=== PATIENT | male | born 1980 | race Caucasian/White ===

== ENCOUNTER 2024-10-13 23:14 | Emergency (ER) | payer MEDICARE, OTHER ==
[~2024-10-13] VITALS: Ht 170.2 cm; Wt 108.9 kg
[2024-10-13 23:44] LABS: BASOPHILS 1.5 % (0-2); EOSINOPHILS 1.7 % (0-6); HEMATOCRIT 46.4 % (35.0-50.0); HEMOGLOBIN 15.6 g/dL (12.0-18.0); LYMPHOCYTES 35.4 % (24-44); MCH 30.6 (27-36); MCHC 33.7 g/dl (30-36); MCV 90.8 fl (81-99); MONOCYTES 8.2 % (0-12); NEUTROPHILS 53.2 % (39-80); PLATELET COUNT 305 K/uL (140-440); RBC 5.11 M/ul (4.3-5.7); RDW 13.8 (10.5-15.0)
[2024-10-13] MEDS ORDERED: MORPHINE SULFATE 4 MG/ML VIAL IV ONE (23:45)
[2024-10-13] MEDS ORDERED: ondansetron HCL 4 MG/2 ML VIAL IV ONE (23:45)
[2024-10-13] MEDS ORDERED: SODIUM CHLORIDE 0.9% 1,000 ML IV ONE (23:45)
[2024-10-13 23:53] LABS: ALBUMIN 3.8 g/dL (3.4-5.0); ALBUMIN/GLOBULIN RATIO 1.23 (1.1-2.4); ANION GAP 11.9 (7-21); BILIRUBIN, TOTAL 0.2 ng/dL (0.2-1.0); BUN/CREATININE RATIO 14.77 (6.0-28.6); CALCIUM 8.8 mg/dL (8.5-10.1); CREATININE, SERUM 0.88 mg/dL (0.70-1.30); POTASSIUM 3.9 mmol/L (3.5-5.1); PROTEIN, TOTAL 6.9 g/dL (6.4-8.2)
[2024-10-13 23:59] LABS: BILIRUBIN, URINE NEGATIVE (negative); BLOOD/HGB, URINE NEGATIVE (Negative); KETONE, URINE NEGATIVE (Negative); LEUK ESTERASE, URINE NEGATIVE (negative); NITRITE, URINE NEGATIVE (negative)
[2024-10-14] MEDS ORDERED: AZMIRO200 MG/1 M (02:00)
[2024-10-14] MEDS ORDERED: OXYCODONE/APAP 5/325 TAB PO ONE (02:00)
[2024-10-14] MEDS ORDERED: OMEPRAZOLE20 MG (02:01)
[2024-10-14] MEDS ORDERED: GABAPENTIN300 MG (02:01)
[2024-10-14] MEDS ORDERED: DIOVAN40 MG (02:01)
[2024-10-14] MEDS ORDERED: TRAMADOL HCL25 MG (02:01)
[2024-10-14] MEDS ORDERED: VENTOLIN HFA18 GM (02:02)
[2024-10-14] MEDS ORDERED: FLOMAX0.4 MG (02:02)
[2024-10-14] MEDS ORDERED: ONDANSETRON ODT8 MG PO (02:14)
[2024-10-14] MEDS ORDERED: HYDROCODON-ACE1 EA10 PO (02:14)
[2024-10-14] MEDS ORDERED: ONDANSETRON 4 MG HOME.PACK SL ONE (03:15)
[2024-10-14] MEDS ORDERED: OXYCODONE/ACETAMINOPHEN 1 TAB HOME.PACK PO ONE (03:15)
[2024-10-14 03:32] VITALS: BP 108/69
== END 2024-10-14 03:34 | disposition home or self-care (01) ==
LOC: ED 23:14
PROVIDERS: Family Medicine
DX: K85.90 Acute pancreatitis without necrosis or infection, unspecified (principal); Z88.6 Allergy status to analgesic agent; Z88.2 Allergy status to sulfonamides; Z88.1 Allergy status to other antibiotic agents; Z88.8 Allergy status to other drugs, medicaments and biological substances; Z79.890 Hormone replacement therapy; Z79.899 Other long term (current) drug therapy
CPT/HCPCS: 36415; 74177; 80053; 81003; 83690; 84478; 85025; 96375; 99284-25; A9270; J2270; J2405; J7030; Q9967

== ENCOUNTER 2024-11-04 20:24 | Emergency (ER) | payer MEDICARE, OTHER ==
[~2024-11-04] VITALS: Ht 170.2 cm; Wt 108.0 kg
[~2024-11-04 20:24] MED LIST: AZMIRO200 MG/1 M; DIOVAN40 MG; FLOMAX0.4 MG; GABAPENTIN300 MG; HYDROCODON-ACE1 EA10 PO; OMEPRAZOLE20 MG; ONDANSETRON ODT8 MG PO; TRAMADOL HCL25 MG; VENTOLIN HFA18 GM
--- OUTSIDE RECORDS SUMMARY | 2024-11-04 20:31 | XMS ---
PreManage Notification: SHAYLA LOMELI Security Copy Manager Events No recent Security Events currently on file CRITERIA MET - [facility] - 2 Visits in 30 Days CARE PROVIDERS -, [facility] Dentist: Jack Spinner Max Ventura PHONE: [phone] CARMEN MURRAY Physician Tank Hoop Bender Current PHONE: [phone] Bria Altamirano Physician Tank Hoop Bender Max HUMPHREYS PHONE: [phone] Care Guidelines exist for the following facilities: [facility] ( 07/19/2020 ) [facility] ( 08/13/2019 ) [facility] ( 08/03/2014 ) [place] VISIT COUNT (12 MO.) [address] [place], [place] [address]Yoselin 2 MICHELLE [place] TOTAL 9 NOTE: Visits indicate total known visits. ED/UCC VISIT TRACKING (12 MO.) 11/04/2024 20:25 MICHELLE Trotter [place] TYPE: Emergency COMPLAINT: - LEFT LEG PAIN 10/13/2024 23:15 MICHELLE [place] TYPE: Emergency COMPLAINT: - ABD PAIN DIAGNOSES: - Acute pancreatitis without necrosis or infection, unspecified - Allergy status to analgesic agent - Allergy status to other antibiotic agents - Allergy status to other drugs, medicaments and biological substances - Allergy status to sulfonamides - Generalized abdominal pain - Hormone replacement therapy - [place] [facility] [place] drug therapy 07/28/2024 09:[facility] [place] [facility] COMPLAINT: - SOB, COUGH 07/08/2024 14:28 [facility] Tonia Richardson [place] TYPE: Emergency COMPLAINT: - BACK PAIN 05/11/2024 18:22 [facility] Tonia Richardson [place] TYPE: Emergency COMPLAINT: - R SIDE FACE PAIN 01/30/2024 11:14 [facility] [place] [facility] COMPLAINT: - NECK PAIN 01/17/2024 10:27 [facility] [place] [facility] COMPLAINT: - BACK PAIN 12/08/2023 12:13 [facility] [place] [facility] COMPLAINT: - LWR BACK, TESTICULAR PAIN 11/11/2023 17:06 [facility] [place] [facility] COMPLAINT: - ABD PAIN INPATIENT VISIT TRACKING (12 MO.) No inpatient visits to display in this time frame [id number]
[2024-11-04] MEDS ORDERED: PRIMIDONE50 MG PO (22:12)
[2024-11-04] MEDS ORDERED: HYDROmorphone HCL 1 MG/ML SYR IV PRN (22:45)
[2024-11-04] MEDS ORDERED: SODIUM CHLORIDE 0.9% 1,000 ML IV SCH (22:45)
[2024-11-04 22:56] LABS: BASOPHILS 1.5 % (0-2); HEMATOCRIT 46.2 % (35.0-50.0); HEMOGLOBIN 15.6 g/dL (12.0-18.0); LYMPHOCYTES 40.7 % (24-44); MCH 30.7 (27-36); MCHC 33.9 g/dl (30-36); MCV 90.7 fl (81-99); MONOCYTES 6.7 % (0-12); NEUTROPHILS 50.1 % (39-80); PLATELET COUNT 288 K/uL (140-440); RBC 5.09 M/ul (4.3-5.7); RDW 13.8 (10.5-15.0)
[2024-11-04 23:12] LABS: ALBUMIN 4.1 g/dL (3.4-5.0); ALBUMIN/GLOBULIN RATIO 1.32 (1.1-2.4); ANION GAP 15.7 (7-21); BILIRUBIN, TOTAL 0.5 mg/dL (0.2-1.0); BUN/CREATININE RATIO 16.86 (6.0-28.6); CALCIUM 9.4 mg/dL (8.5-10.1); CREATININE, SERUM 0.83 mg/dL (0.70-1.30); POTASSIUM 3.7 mmol/L (3.5-5.1); PROTEIN, TOTAL 7.2 g/dL (6.4-8.2)
[2024-11-04 23:16] LABS: AMPHETAMINES, URINE NEGATIVE (NEGATIVE); BARBITURATES, URINE NEGATIVE (NEGATIVE); BENZODIAZEPINE, URINE NEGATIVE (NEGATIVE); BUPRENORPHINE, URINE NEGATIVE (NEGATIVE); CANNABINOID, URINE POSITIVE (NEGATIVE); COCAINE, URINE NEGATIVE (NEGATIVE); ECSTASY, URINE NEGATIVE (NEGATIVE); FENTANYL, URINE NEGATIVE (NEGATIVE); METHADONE, URINE NEGATIVE (NEGATIVE); OPIATES, URINE NEGATIVE (NEGATIVE); OXYCODONE, URINE NEGATIVE (NEGATIVE); PHENCYCLIDINE, URINE NEGATIVE (NEGATIVE)
[2024-11-04] MEDS ORDERED: ondansetron HCL 4 MG/2 ML VIAL IV ONE (23:45)
[2024-11-05 05:27] LABS: BASOPHILS 0.6 % (0-2); EOSINOPHILS 2.2 % (0-6); HEMATOCRIT 43.6 % (35.0-50.0); LYMPHOCYTES 38.6 % (24-44); MCH 31.2 (27-36); MCHC 34.3 g/dl (30-36); MCV 90.9 fl (81-99); NEUTROPHILS 51.6 % (39-80); PLATELET COUNT 283 K/uL (140-440); RBC 4.79 M/ul (4.3-5.7); RDW 13.3 (10.5-15.0)
[2024-11-05] MEDS ORDERED: HYDROCODONE BIT/ACETAMINOPHEN 5/325 MG 1 TAB HOME.PACK PO PRN (05:45)
[2024-11-05 05:50] VITALS: BP 111/63
== END 2024-11-05 05:50 | disposition home or self-care (01) ==
LOC: ED 20:24
PROVIDERS: Emergency Medicine
DX: S76.912A Strain of unspecified muscles, fascia and tendons at thigh level, left thigh, initial encounter (principal); X50.0XXA Overexertion from strenuous movement or load, initial encounter; Z88.6 Allergy status to analgesic agent; Z88.2 Allergy status to sulfonamides; Z88.1 Allergy status to other antibiotic agents; Z88.8 Allergy status to other drugs, medicaments and biological substances; Z79.899 Other long term (current) drug therapy
CPT/HCPCS: 36415; 80053; 80307; 82550; 85025; 93926; 96374; 96375; 96376; 99284-25; A9270; J1171; J2405; J7030

== ENCOUNTER 2024-12-03 13:14 | Emergency (ER) | payer MEDICARE, OTHER ==
[~2024-12-03] VITALS: Ht 170.2 cm; Wt 105.7 kg
[~2024-12-03 13:14] MED LIST changes: +PRIMIDONE50 MG PO
--- OUTSIDE RECORDS SUMMARY | 2024-12-03 13:20 | XMS ---
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 Events No recent Security Events currently on file CRITERIA MET - 6 ED Visits in 6 Months - Group Notification - [facility] - 2 Visits in 30 Days CARE PROVIDERS -, [facility] Dentist: Bull Bucker Max Ventura PHONE: [phone] MANDY CEVALLOS Physician Advertising Editor Current PHONE: [phone] CARMEN MURRAY Physician Advertising Editor Current PHONE: Unknown Bria Altamirano Physician Advertising Editor Max HUMPHREYS PHONE: [phone] Care Guidelines exist for the following facilities: [facility] ( 07/19/2020 ) [facility] ( 08/13/2019 ) [facility] ( 08/03/2014 ) [place] VISIT COUNT (12 MO.) 6 [facility]. 4 MICHELLE [place] . TOTAL 10 NOTE: Visits indicate total known visits. ED/UCC VISIT TRACKING (12 MO.) 12/03/2024 13:14 MICHELLE Trotter [place] TYPE: Emergency COMPLAINT: - CHEST PAIN 11/16/2024 10:16 MICHELLE Trotter [place] TYPE: Emergency COMPLAINT: - LT ARM PAIN 11/04/2024 20:25 MICHELLE Trotter [place] TYPE: Emergency COMPLAINT: - LEFT LEG PAIN DIAGNOSES: - Allergy status to analgesic agent - Allergy status to other antibiotic agents - Allergy status to other drugs, medicaments and biological substances - Allergy status to sulfonamides - Other [place] [facility] [place] drug therapy - Overexertion from strenuous movement or load, initial encounter - Pain in left thigh - Strain of unspecified muscles, fascia and tendons at thigh level, left thigh, initial encounter 10/13/2024 23:15 [facility] [place] TYPE: Emergency COMPLAINT: - ABD PAIN DIAGNOSES: - Acute pancreatitis without necrosis or infection, unspecified - Allergy status to analgesic agent - Allergy status to other antibiotic agents - Allergy status to other drugs, medicaments and biological substances - Allergy status to sulfonamides - Generalized abdominal pain - Hormone replacement therapy - Other [place] [facility] drug therapy 07/28/2024 09[facility] COMPLAINT: - SOB, COUGH 07/08/2024 14:28 [facility] COMPLAINT: - BACK PAIN 05/11/2024 18:22 [facility] COMPLAINT: - R SIDE FACE PAIN 01/30/2024 11:14 [facility] COMPLAINT: - NECK PAIN 01/17/2024 10:27 [facility] Tonia Richardson [place] TYPE: Emergency COMPLAINT: - BACK PAIN 12/08/2023 12:13 [facility] Tonia Richardson [place] TYPE: Emergency COMPLAINT: - LWR BACK, TESTICULAR PAIN INPATIENT VISIT TRACKING (12 MO.) No inpatient visits to display in this time frame [id number]
[2024-12-03] MEDS ORDERED: ASPIRIN 81 MG CHEW PO ONE (13:30)
[2024-12-03] MEDS ORDERED: NITROGLYCERIN 0.4 MG SUBL SL PRN (13:30)
[2024-12-03 13:32] LABS: BASOPHILS 0.7 % (0-2); EOSINOPHILS 1.5 % (0-6); HEMATOCRIT 46.6 % (35.0-50.0); HEMOGLOBIN 16.2 g/dL (12.0-18.0); LYMPHOCYTES 30.8 % (24-44); MCH 31.3 (27-36); MCHC 34.7 g/dl (30-36); MCV 90.1 fl (81-99); MONOCYTES 8.6 % (0-12); NEUTROPHILS 58.4 % (39-80); PLATELET COUNT 328 K/uL (140-440); RBC 5.17 M/ul (4.3-5.7); RDW 13.3 (10.5-15.0)
[2024-12-03 13:49] LABS: ALBUMIN 4.5 g/dL (3.4-5.0); ALBUMIN/GLOBULIN RATIO 1.41 (1.1-2.4); ANION GAP 15.2 (7-21); BILIRUBIN, TOTAL 0.4 mg/dL (0.2-1.0); BUN/CREATININE RATIO 17.94 (6.0-28.6); CALCIUM 9.3 mg/dL (8.5-10.1); CREATININE, SERUM 0.78 mg/dL (0.70-1.30); MAGNESIUM 1.7 mg/dL (1.8-2.4); POTASSIUM 4.2 mmol/L (3.5-5.1); PROTEIN, TOTAL 7.7 g/dL (6.4-8.2)
[2024-12-03 15:35] VITALS: BP 132/74
--- NOTE | 2024-12-04 22:32 | EKG ---
[facility] [address] [place] [address] Signed Sinus bradycardia Early repolarization Otherwise normal ECG No previous ECGs available Confirmed by Emery Powell MD () on 12/04/2024 10:31:58 PM Electronically Signed By: EMERY POWELL MD 12/04/242231 PATIENT NAME: SHAYLA LOMELI Electrocardiogram DATE OF : 84 PHYSICIAN: EMERY POWELL MD REPORT #: [id number] REPORT IS CONFIDENTIAL AND NOT TO BE RELEASED WITHOUT AUTHORIZATION
== END 2024-12-03 15:35 | disposition home or self-care (01) ==
LOC: ED 13:14
PROVIDERS: Emergency Medicine
DX: R07.9 Chest pain, unspecified (principal); F43.10 Post-traumatic stress disorder, unspecified; Z79.899 Other long term (current) drug therapy; Z88.2 Allergy status to sulfonamides; Z88.1 Allergy status to other antibiotic agents; Z88.6 Allergy status to analgesic agent
CPT/HCPCS: 36415; 71045; 80053; 83735; 84484; 85025; 85379; 93005; 93010; 99285-25; A9270

== ENCOUNTER 2024-12-03 21:31 | Emergency (ER) | payer MEDICARE, OTHER ==
[~2024-12-03] VITALS: Ht 170.2 cm; Wt 105.7 kg
--- OUTSIDE RECORDS SUMMARY | 2024-12-03 21:38 | XMS ---
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 Events No recent Security Events currently on file CRITERIA MET - 6 ED Visits in 6 Months - Group Notification - [facility] - 2 Visits in 30 Days CARE PROVIDERS -, [facility] Dentist: Patient Care Nursing Assistant Max Ventura PHONE: [phone] MANDY CEVALLOS Physician Clinical Rehabilitation Specialist Current PHONE: [phone] CARMEN MURRAY Physician Clinical Rehabilitation Specialist Current PHONE: Unknown Bria Altamirano Physician Clinical Rehabilitation Specialist Max HUMPHREYS PHONE: [phone] Care Guidelines exist for the following facilities: [facility] ( 07/19/2020 ) [facility] ( 08/13/2019 ) [facility] ( 08/03/2014 ) [place] VISIT COUNT (12 MO.) 6 [facility] TOTAL 11 NOTE: Visits indicate total known visits. ED/UCC VISIT TRACKING (12 MO.) 12/03/2024 21:32 MICHELLE [place]rotter [place] TYPE: Emergency COMPLAINT: - SWOLLEN NECK 12/03/2024 13:14 MICHELLE Trotter [place] TYPE: Emergency [...] - Allergy status to sulfonamides - Other [facility] (current) drug therapy - Overexertion from strenuous movement or load, initial encounter - Pain in left thigh - Strain of unspecified muscles, fascia and tendons at thigh level, left thigh, initial encounter 10/13/2024 23:15 MICHELLE [place] TYPE: Emergency COMPLAINT: - ABD PAIN DIAGNOSES: - Acute pancreatitis without necrosis or infection, unspecified - Allergy status to analgesic agent - Allergy status to other antibiotic agents - Allergy status to other drugs, medicaments and biological substances - Allergy status to sulfonamides - Generalized abdominal pain - Hormone replacement therapy - Other [facility] (current) drug therapy 07/28/2024 09:29 [facility] Tonia Richardson [place] TYPE: Emergency COMPLAINT: - SOB, COUGH 07/08/2024 14:28 [facility] Tonia Richardson [place] TYPE: Emergency COMPLAINT: - BACK PAIN 05/11/2024 18:22 [facility] Tonia Richardson [place] TYPE: Emergency COMPLAINT: - R SIDE FACE PAIN 01/30/2024 11:14 [facility] COMPLAINT: - NECK PAIN 01/17/2024 10:27 [facility] COMPLAINT: - BACK PAIN 12/08/2023 12:13 [facility] [place] [facility] COMPLAINT: - LWR BACK, TESTICULAR PAIN INPATIENT VISIT TRACKING (12 MO.) No inpatient visits to display in this time frame [id number]
[2024-12-04 01:27] VITALS: BP 123/67
== END 2024-12-04 01:28 | disposition home or self-care (01) ==
LOC: ED 21:31
DX: M62.838 Other muscle spasm (principal); Z88.2 Allergy status to sulfonamides; Z88.1 Allergy status to other antibiotic agents; Z88.8 Allergy status to other drugs, medicaments and biological substances; Z88.6 Allergy status to analgesic agent
CPT/HCPCS: 99283

== ENCOUNTER 2024-12-21 17:37 | Emergency (ER) | payer MEDICARE, OTHER ==
[~2024-12-21] VITALS: Ht 170.2 cm; Wt 105.8 kg
--- OUTSIDE RECORDS SUMMARY | 2024-12-21 17:44 | XMS ---
PreManage Notification: SHAYLA LOMELI Security Statistician Applied Events No recent Security Events currently on file CRITERIA MET - 6 ED Visits in 6 Months - Group Notification - [facility] - 2 Visits in 30 Days CARE PROVIDERS -, [facility] Dentist: Cuprous Chloride Operator Max Ventura PHONE: [phone] MANDY CEVALLOS Physician Day Habilitation Specialist Current PHONE: [phone] CARMEN MURRAY Physician Day Habilitation Specialist Current PHONE: Unknown Bria Alatmirano Physician Day Habilitation Specialist Max HUMPHREYS PHONE: [phone] Care Guidelines exist for the following facilities: [facility] ( 07/19/2020 ) [facility] ( 08/13/2019 ) [facility] ( 08/03/2014 ) [place] VISIT COUNT (12 MO.) [address] [facility] [address] [facility] Yoselin [address] [place] [address]. TOTAL 11 NOTE: Visits indicate total known visits. ED/UCC VISIT TRACKING (12 MO.) 12/21/2024 17:37 [place] COMPLAINT: - ABDOMINAL PAIN 12/03/2024 21:32 MICHELLE Trotter [place] TYPE: Emergency COMPLAINT: - SWOLLEN NECK DIAGNOSES: - Allergy status to analgesic agent - Allergy status to other antibiotic agents - Allergy status to other drugs, medicaments and biological substances - Allergy status to sulfonamides - Chest pain, unspecified - Other muscle spasm 12/03/2024 13:14 MICHELLE Trotter [place] TYPE: Emergency COMPLAINT: - CHEST PAIN DIAGNOSES: - Allergy status to analgesic agent - Allergy status to other antibiotic agents - Allergy status to sulfonamides - Chest pain, unspecified - Other alf (current) drug therapy - Post-traumatic stress disorder, unspecified 11/16/2024 10:16 MICHELLE [place] TYPE: Emergency COMPLAINT: - LT ARM PAIN 11/04/2024 20:25 MICHELLE [place]rotter [place] TYPE: Emergency COMPLAINT: - LEFT LEG PAIN DIAGNOSES: - Allergy status to analgesic agent - Allergy status to other antibiotic agents - Allergy status to other drugs, medicaments and biological substances - Allergy status to sulfonamides - 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 - Overexertion from strenuous [...] pain - Hormone replacement therapy - 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 07/28/2024 09:29 [facility] Tonia Richardson [place] TYPE: Emergency COMPLAINT: - SOB, COUGH 07/08[facility]2024 [facility] COMPLAINT: - BACK PAIN 05/11/2024 18:22 [facility] COMPLAINT: - R SIDE FACE PAIN 01/30/2024 11:14 [facility] COMPLAINT: - NECK PAIN 01/17/2024 10:27 [facility] COMPLAINT: - BACK PAIN INPATIENT VISIT TRACKING (12 MO.) No inpatient visits to display in this time frame [id number]
[2024-12-21 18:25] LABS: BILIRUBIN, URINE NEGATIVE (negative); BLOOD/HGB, URINE NEGATIVE (Negative); KETONE, URINE NEGATIVE (Negative); LEUK ESTERASE, URINE NEGATIVE (negative); NITRITE, URINE NEGATIVE (negative); PH, URINE 5.5 (5-7)
[2024-12-21 18:36] LABS: BASOPHILS 0.7 % (0-2); EOSINOPHILS 1.4 % (0-6); HEMATOCRIT 46.8 % (35.0-50.0); HEMOGLOBIN 16.1 g/dL (12.0-18.0); LYMPHOCYTES 28.5 % (24-44); MCH 30.7 (27-36); MCHC 34.5 g/dl (30-36); MONOCYTES 6.4 % (0-12); PLATELET COUNT 297 K/uL (140-440); RBC 5.26 M/ul (4.3-5.7); RDW 13.7 (10.5-15.0)
[2024-12-21 18:51] LABS: ALBUMIN 4.1 g/dL (3.4-5.0); ALBUMIN/GLOBULIN RATIO 1.32 (1.1-2.4); ANION GAP 15.9 (7-21); BILIRUBIN, TOTAL 0.2 mg/dL (0.2-1.0); BUN/CREATININE RATIO 18.51 (6.0-28.6); CREATININE, SERUM 0.81 mg/dL (0.70-1.30); POTASSIUM 3.9 mmol/L (3.5-5.1); PROTEIN, TOTAL 7.2 g/dL (6.4-8.2)
[2024-12-21] MEDS ORDERED: ondansetron HCL 4 MG/2 ML VIAL IV ONE (19:45)
[2024-12-21] MEDS ORDERED: SODIUM CHLORIDE 0.9% 1,000 ML IV ONE (19:45)
[2024-12-21] MEDS ORDERED: KETOROLAC TROMETHAMINE 15 MG/ML VIAL IV ONE (19:45)
[2024-12-21] MEDS ORDERED: HYDROmorphone HCL 1 MG/ML SYR IV ONE (19:45)
[2024-12-21] MEDS ORDERED: HYDROCODONE BIT/ACETAMINOPHEN 5/325 MG 1 TAB HOME.PACK PO ONE (21:00)
[2024-12-21] MEDS ORDERED: ONDANSETRON 4 MG HOME.PACK SL ONE (21:00)
[2024-12-21 21:26] VITALS: BP 116/68
== END 2024-12-21 21:26 | disposition home or self-care (01) ==
LOC: ED 17:37
PROVIDERS: Emergency Medicine
DX: R10.9 Unspecified abdominal pain (principal); Z88.2 Allergy status to sulfonamides; Z88.1 Allergy status to other antibiotic agents; Z88.6 Allergy status to analgesic agent; Z88.8 Allergy status to other drugs, medicaments and biological substances; Z79.899 Other long term (current) drug therapy
CPT/HCPCS: 36415; 74176; 80053; 81003; 83690; 85025; 96374; 96375; 99284-25; A9270; J1171; J1885; J2405; J7030

== ENCOUNTER 2025-06-22 10:16 | Emergency (ER) | payer MEDICARE, OTHER ==
[~2025-06-22] VITALS: Ht 170.2 cm; Wt 105.6 kg
[~2025-06-22 10:16] MED LIST changes: +LIDOCAINE1 EACH; +PRAMIPEXOLE0.125 MG PO; +VALACYCLOVIR1000 MG PO; +VITAMIN D325 MCG
--- OUTSIDE RECORDS SUMMARY | 2025-06-22 10:23 | XMS ---
PreManage Notification: SHAYLA LOMELI Security Wicker Worker Events No recent Security Events currently on file CRITERIA MET - Group Notification CARE PROVIDERS -, [facility] Dentist: Soil Expert Max Ventura PHONE: [phone] MANDY CEVALLOS Physician Tactical Response Group Officer Current PHONE: [phone] Bria Altamirano Physician Tactical Response Group Officer Max HUMPHREYS PHONE: [phone] Care Guidelines exist for the following facilities: [facility] ( 07/19/2020 ) [facility] ( 08/13/2019 ) [facility] ( 08/03/2014 ) [place] VISIT COUNT (12 MO.) [address] [facility] TOTAL 11 NOTE: Visits indicate total known visits. ED/UCC VISIT TRACKING (12 MO.) 06/22/2025 10:16 MICHELLE [place] TYPE: Emergency COMPLAINT: - FLANK PAIN 03/17[facility]2025 [facility] DIAGNOSES: - Noninfective gastroenteritis and colitis, unspecified - Abdominal Pain - Stomach Pain 02/14/2025 10:41 MICHELLE Larios TYPE: Emergency COMPLAINT: - NECK PAIN DIAGNOSES: - Allergy status to other drugs, medicaments and biological substances - Allergy status to sulfonamides - Cervicalgia - Essential (primary) hypertension - Other remote computer terminal operator (current) drug therapy - Post-traumatic stress disorder, unspecified 12/21/2024 17:37 MICHELLE Larios TYPE: Emergency COMPLAINT: - ABDOMINAL PAIN DIAGNOSES: - Allergy status to analgesic agent - Allergy status to other antibiotic agents - Allergy status to other drugs, medicaments and biological substances - Allergy status to sulfonamides - Other remote computer terminal operator (current) drug therapy - Unspecified abdominal pain 12/03/2024 21:32 [facility] [place] TYPE: Emergency COMPLAINT: - SWOLLEN NECK DIAGNOSES: - Allergy status to analgesic agent - Allergy status to other antibiotic agents - Allergy status to other drugs, medicaments and biological substances - Allergy status to sulfonamides - Chest pain, unspecified - Other muscle spasm 12/03/2024 13:14 [facility] [place] [facility] [place] TYPE: Emergency COMPLAINT: - CHEST PAIN DIAGNOSES: - Allergy status to analgesic agent - Allergy status to other antibiotic agents - Allergy status to sulfonamides - Chest pain, unspecified - Other remote computer terminal operator (current) drug therapy - Post-traumatic stress disorder, unspecified 11/16/2024 10:16 [facility] [place] TYPE: Emergency COMPLAINT: - LT ARM PAIN 11/04/2024 20:[address] [facility] [place] TYPE: Emergency COMPLAINT: - LEFT LEG PAIN DIAGNOSES: - Allergy status to analgesic agent - Allergy status to other antibiotic agents - Allergy status to other drugs, medicaments and biological substances - Allergy status to sulfonamides - Other custodial (current) drug therapy - Overexertion from strenuous [...] pain - Hormone replacement therapy - Other remote computer terminal operator (current) drug therapy 07/28/2024 09:29 Sita Richardson [place] TYPE: Emergency COMPLAINT: - SOB, COUGH 07/08/2024 14:28 Sita Richardson [place] TYPE: Emergency COMPLAINT: - BACK PAIN INPATIENT VISIT TRACKING (12 MO.) No inpatient visits to display in this time frame [id number]
[2025-06-22] MEDS ORDERED: TRAMADOL HCL 50 MG TAB PO ONE (10:45)
[2025-06-22] MEDS ORDERED: KETOROLAC TROMETHAMINE 60 MG/2 ML VIAL IM ONE (10:45)
[2025-06-22 10:59] LABS: BLOOD/HGB, URINE NEGATIVE (Negative); KETONE, URINE NEGATIVE (Negative); LEUK ESTERASE, URINE NEGATIVE (negative); NITRITE, URINE NEGATIVE (negative)
[2025-06-22 11:36] VITALS: BP 125/77
== END 2025-06-22 11:37 | disposition home or self-care (01) ==
LOC: ED 10:16
PROVIDERS: Emergency Medicine
DX: M54.50 Low back pain, unspecified (principal); I10 Essential (primary) hypertension; Z88.2 Allergy status to sulfonamides; Z88.6 Allergy status to analgesic agent; Z88.8 Allergy status to other drugs, medicaments and biological substances; Z79.899 Other long term (current) drug therapy
CPT/HCPCS: 81003; 96372; 99284; J1885